=== PATIENT | female | born 1990 | race Caucasian/White ===

== ENCOUNTER 2020-09-08 10:31 | Emergency (ER) | payer BC ==
[2020-09-08] MEDS ORDERED: Ketorolac Tromethamine 30 MG/ML VIAL ONE (11:37)
[2020-09-08] MEDS ORDERED: Ondansetron PF 4 MG/2 ML Vial ONE (11:37)
--- NOTE | 2020-09-08 11:49 | RAD ---
XR Chest 1 View Portable History: Dyspnea Comparison: None. Findings: Patchy peripheral airspace opacities. No pneumothorax. No effusion. No acute osseous abnorm ality. Impression: Patchy airspace opacities can be seen with Covid-19 pneumonia.
--- NOTE | 2020-09-08 11:52 | ULT ---
US Gallbladder RUQ History: Right upper quadrant pain Comparison: None. Findings: Real-time grayscale and color evaluation right upper quadrant of the abdomen was performed. The aorta IVC and pancreas are not well seen due to decreased penetration. Diffuse increased hepatic echotexture. No mass. No intrahepatic or extrahepatic biliary dilatation. Right kidney measures 12.6 x 5.7 x 6.3 cm without mass, hydronephrosis or abnormal calcifications. Cholelithiasis without wall thickening. No pericholecystic edema. Portal vein is patent with antegrad e flow. Common bile duct is nondilated. Impression: 1. Cholelithiasis without cholecystitis. 2. Diffuse hepatic steatosis.
[2020-09-08] MEDS ORDERED: Ondansetron ODT 8 MG TAB ONE (12:15)
[2020-09-08 12:44] LABS: #Lymphocytes 1.1 thou/uL (1.20-3.40); #Monocytes 0.3 thou/uL (0.11-0.59); #Neutrophils 3.7 thou/uL (1.40-6.50); %Basophils 0.7 % (0.0-1.0); %Eosinophils 0.5 % (0.0-10.0); %Lymphocytes 21.2 % (21.0-51.0); %Monocytes 5.1 % (0.0-10.0); %Neutrophils 72.5 % (42.0-75.0); Hemoglobin 14.3 g/dL (12.0-16.0); Mean Corpuscular Hemoglobin 29.3 pg (27.0-31.0); Mean Corpuscular Volume 88.9 fL (78.0-98.0); Mean Platelet Volume 6.7 fL (7.4-10.4); Platelet Count 247 thou/uL (130-400); RBC Distribution Width 12.4 % (11.5-14.5); Red Blood Cell (RBC) Count 4.89 mill/uL (4.20-5.40); White Blood Cell (WBC) Count 5.1 thou/uL (4.8-10.8)
[2020-09-08 13:14] LABS: ALT (SGPT) 50 U/L (8-55); AST (SGOT) 50 U/L (5-34); Albumin 3.9 g/dL (3.5-5.0); Alkaline Phosphatase 74 U/L (40-110); Anion Gap 16 mmol/L (10-20); BUN (Urea Nitrogen) 8 mg/dL (7.0-18.7); Bilirubin, Total 0.2 mg/dL (0.2-1.2); Calc. Creatinine Clearance 0 mL/min (70-130); Calcium 8.8 mg/dL (7.8-10.44); Carbon Dioxide 21 mmol/L (22-29); Chloride 102 mmol/L (98-107); Estimated GFR-MDRD Greater than 90; Globulin 3.4 g/dL (2.4-3.5); Glucose 129 mg/dL (70-105); Lipase 10 U/L (8-78); Protein, Total 7.3 g/dL (6.0-8.3); Sodium 135 mmol/L (136-145)
[2020-09-08] MEDS ORDERED: Dexamethasone 10 MG/ML VIAL ONE (14:18)
== END 2020-09-08 14:45 | disposition home or self-care (01) ==
LOC: ERS 10:31
DX: U07.1 COVID-19 (principal); K80.70 Calculus of gallbladder and bile duct without cholecystitis without obstruction
CPT/HCPCS: 36415; 71045; 76705; 80053; 83690; 85025; 96372; 96374; 96375; J0500; J1100; J1885; J2405; Q0162

== ENCOUNTER 2020-09-11 23:58 | Inpatient (IN) | payer BC ==
[2020-09-12 00:43] LABS: #Lymphocytes 1.6 thou/uL (1.20-3.40); #Monocytes 0.3 thou/uL (0.11-0.59); #Neutrophils 5.8 thou/uL (1.40-6.50); %Basophils 0.2 % (0.0-1.0); %Eosinophils 0.2 % (0.0-10.0); %Lymphocytes 20.4 % (21.0-51.0); %Monocytes 4.1 % (0.0-10.0); Hemoglobin 14.1 g/dL (12.0-16.0); Mean Corpuscular HGB CONC 32.5 g/dL (32.0-36.0); Mean Corpuscular Hemoglobin 28.5 pg (27.0-31.0); Mean Corpuscular Volume 87.7 fL (78.0-98.0); Mean Platelet Volume 6.6 fL (7.4-10.4); Platelet Count 320 thou/uL (130-400); RBC Distribution Width 12.3 % (11.5-14.5); Red Blood Cell (RBC) Count 4.96 mill/uL (4.20-5.40); White Blood Cell (WBC) Count 7.7 thou/uL (4.8-10.8)
[2020-09-12] MEDS ORDERED: Acetaminophen 500 MG TAB ONE (01:04)
[2020-09-12 01:29] LABS: BHCG - Serum Negative (NEGATIVE); Pregs Control Background? CLEAR/WHITE (CLR/WHITE); Pregs Control Bar Appear? YES (CONTROL BAR)
[2020-09-12 01:46] LABS: ALT (SGPT) 54 U/L (8-55); AST (SGOT) 65 U/L (5-34); Albumin 4.1 g/dL (3.5-5.0); Alkaline Phosphatase 71 U/L (40-110); Anion Gap 18 mmol/L (10-20); BUN (Urea Nitrogen) 8 mg/dL (7.0-18.7); Bilirubin, Total 0.4 mg/dL (0.2-1.2); Calc. Creatinine Clearance 0 mL/min (70-130); Calcium 8.7 mg/dL (7.8-10.44); Carbon Dioxide 26 mmol/L (22-29); Chloride 98 mmol/L (98-107); Estimated GFR-MDRD Greater than 90; Globulin 4.4 g/dL (2.4-3.5); Glucose 107 mg/dL (70-105); Potassium 3.8 mmol/L (3.5-5.1); Protein, Total 8.5 g/dL (6.0-8.3); Sodium 138 mmol/L (136-145)
[2020-09-12] MEDS ORDERED: Dextrose 5% in Water 1,000 ML IV PRN (03:23)
[2020-09-12] MEDS ORDERED: Dextrose 50% Abboject 50 ML SYRINGE SLOW IVP PRN (03:23)
[2020-09-12] MEDS ORDERED: Azithromycin 500 MG in Sodium Chloride 0.9% 250 ML 250 ML IVPB SCH ×3 (03:30→08:00)
[2020-09-12] MEDS ORDERED: cefTRIAXone\\ROCEPHIN 1 GM in Sodium Chloride 0.9% 100 ML IVPB SCH (03:30)
[2020-09-12] MEDS ORDERED: Albuterol Sulfate 1.25 MG/3 ML NEB NEB PRN (03:53)
[2020-09-12] MEDS ORDERED: cefTRIAXone\\ROCEPHIN 2 GM in Sodium Chloride 0.9% 100 ML IVPB SCH ×2 (04:00→08:00)
--- NOTE | 2020-09-12 05:06 | HP ---
CHIEF COMPLAINT: Shortness of breath, cough, fever, and abdominal pain. HISTORY OF PRESENT ILLNESS: Ms. Quiroz is a 29-year-old female with past medical history of diabetes mellitus, type 2; morbid obesity; asthma, presented to the emergency room with cough, fever, and shortness of breath associated with abdominal pain. The patient was tested positive for COVID 10 days ago. Workup in the emergency room, patient was in distress, febrile, temperature 101.7, patient's oxygen saturation dropped to 80s with any minimal exertion/ambulation. The patient started on 2 L/minute nasal cannula. Imaging studies including CT showed infiltrates consistent with COVID. Abdominal imaging showed cholelithiasis, without obstruction or cholecystitis as per the ED physician. So, official report is not available at the time of this dictation. Lactic acid 1.6. The patient is being admitted to the hospital for further management. PAST MEDICAL HISTORY: 1. Diabetes mellitus, type 2. 2. Morbid obesity. 3. Childhood asthma. 4. Gout. 5. Irritable bowel syndrome. PAST SURGICAL HISTORY: No significant past surgical history. PAST PSYCHIATRIC HISTORY: Anxiety. FAMILY HISTORY: Reviewed and noncontributory. SOCIAL HISTORY: The patient drinks socially. No smoking history. ALLERGIES: SHE IS ALLERGIC TO SULFA AND PENICILLIN. HOME MEDICATIONS: Please see home medications reconciliation form for updated medications. PHYSICAL EXAMINATION: GENERAL: The patient is awake, alert, in moderate distress. VITAL SIGNS: Blood pressure 110/56, pulse is 80, respiratory rate is 22, temperature 101.7, oxygen saturation 94% on 2 L/minute nasal cannula. HEAD AND NECK: Normocephalic, atraumatic. Neck is supple. CHEST: Coarse bilateral breath sounds, respirations are labored. HEART: S1, S2. Regular. ABDOMEN: Obese, soft. Mild epigastric tenderness. Bowel sounds present. NEUROLOGIC: Awake, alert, oriented. No focal deficits. PSYCH: Unable to assess. EXTREMITIES: No clubbing or cyanosis. SKIN: No apparent rash. GENITOURINARY: No suprapubic tenderness. No flank tenderness. LABORATORY DATA: As mentioned above in history of present illness. IMAGING STUDIES: As mentioned above in history of present illness. ASSESSMENT: 1. Pneumonia secondary to COVID-19 virus infection. 2. COVID-19 virus infection. 3. Hypoxia. Patient's oxygen saturation dropped down to the 80s with minimal exertion. 4. Morbid obesity with BMI more than 40. 5. Diabetes mellitus, type 2. 6. Abdominal pain. 7. Cholelithiasis without evidence of obstruction or cholecystitis. PLAN: 1. Admit. 2. Oxygen to keep saturation more than 92%. 3. IV dexamethasone. 4. Empiric IV antibiotics. 5. Bronchodilators as needed. 6. Reconcile home medications. 7. DVT prophylaxis as appropriate. 8. Expected length of stay, 2 midnights or more. Job ID: [id number]
[2020-09-12] MEDS ORDERED: Ondansetron PF 4 MG/2 ML Vial ONE (05:27)
[2020-09-12 06:12] VITALS: BMI 51.5
--- NOTE | 2020-09-12 07:41 | CT ---
CT Chest WO Con History: Shortness of breath and cough. Covid pneumonia Comparison: None. Findings: Chest radiograph September 08, 2020 Impression: Findings and impression are concordant with the preliminary report.
--- NOTE | 2020-09-12 07:43 | CT ---
CT Abdomen Pelvis W Con History: Abdominal pain. Code with pneumonia. Nausea Comparison: None. Findings/impression: Concordant with the preliminary report. Hepatic steatosis. Normal appendix.
[2020-09-12] MEDS: Acetaminophen 325 MG TAB PO PRN ×3 (08:19→19:58)
[2020-09-12] MEDS ORDERED: Dexamethasone Sod Phosphate 6 MG in Sodium Chloride 0.9% 50 ML IVPB SCH (09:00)
[2020-09-12] MEDS ORDERED: Enoxaparin Sodium 40 MG/0.4 ML SYRINGE SC SCH (09:00)
[2020-09-12] MEDS: Famotidine/PF 20 mg/2ml Vial SLOW IVP SCH ×2 (09:08→19:55)
[2020-09-12] MEDS: Enoxaparin Sodium 40 MG/0.4 ML SYRINGE SC SCH ×2 (09:08→19:55)
[2020-09-12] MEDS: Guaifenesin DM 100-10/5 ML UDCUP PO PRN (11:46)
[2020-09-12] MEDS: Cepastat Lozenges 1 LOZ PO PRN (11:47)
--- NOTE | 2020-09-12 12:59 | PDOC.HOSPP ---
- Subjective Encounter Date: 09/12/20 Encounter Time: 11:45 Subjective: has cough, sometimes gets hemoptysis has been sick for atleast 9 days now per patient normally ambulates well has b/l lower chest/abd area pain from coughing is comfortable on nasal canula - Objective Vital Signs & Weight: Vital Signs (12 hours) Temp Pulse Resp BP Pulse Ox 09/12/20 11:10 98.9 F 94 20 115/46 L 94 L 09/12/20 08:20 100.0 F H 107 H 23 H 126/99 H 94 L 09/12/20 05:38 99.1 F 98 22 H 129/59 L 94 L Weight Weight 338 lb 12.8 oz Result Diagrams: 09/12/20 00:30 09/12/20 00:30 Additional Labs: Accuchecks 09/12/20 09/12/20 11:15 06:20 POC Glucose 163 H 147 H Hospitalist ROS - Medication Medications: Active Medications Generic Name Dose Route Start Last Admin Trade Name Freq PRN Reason Stop Dose Admin Acetaminophen 650 mg 09/12/20 03:18 09/12/20 08:19 Acetaminophen 325 Mg Tab PO 650 mg Q4H PRN Administration Headache/Fever/Mild Pain (1-3) Enoxaparin Sodium 40 mg 09/12/20 09:00 09/12/20 09:08 Enoxaparin Sodium 40 Mg/0.4 Ml Syringe SC 40 mg 0900,2100 SHARYN Administration Famotidine 20 mg 09/12/20 09:00 09/12/20 09:08 Famotidine/Pf 20 Mg/2ml Vial SLOW IVP 20 mg Q12HR SHARYN Administration Guaifenesin/Dextromethorphan 15 ml 09/12/20 11:01 09/12/20 11:46 Guaifenesin Dm 100-10/5 Ml Udcup PO 15 ml Q4H PRN Administration Cough Azithromycin 500 mg/ Sodium 250 mls @ 250 mls/hr 09/12/20 08:00 09/12/20 09:08 Chloride IVPB 250 mls Q24HR SHARYN Administration Ceftriaxone Sodium 2 gm/ 100 mls @ 200 mls/hr 09/12/20 08:00 09/12/20 11:46 Sodium Chloride IVPB 100 mls Q24HR SHARYN Administration Throat Lozenges 1 mitchell 09/12/20 11:01 09/12/20 11:47 Cepastat Lozenges 1 Mitchell PO 1 mitchell Q2H PRN Administration Sore Throat - Exam General Appearance: awake alert Eye: PERRL, anicteric sclera ENT: no oropharyngeal lesions, moist mucosa Neck: supple, no JVD Heart: RRR, no murmur Respiratory: no wheezes, rales, rhonchi Gastrointestinal: soft, non-tender, non-distended, normal bowel sounds Extremities: no cyanosis, no edema Neurological: cranial nerve grossly intact, no focal deficits Psychiatric: normal affect, A&O x 3 Hosp A/P (1) Pneumonia due to COVID-19 virus Code(s): U07.1 - COVID-19; J12.89 - OTHER VIRAL PNEUMONIA Status: Acute (2) Acute respiratory failure with hypoxia Code(s): J96.01 - ACUTE RESPIRATORY FAILURE WITH HYPOXIA Status: Acute (3) Morbid obesity with BMI of 50.0-59.9, adult Code(s): E66.01 - MORBID (SEVERE) OBESITY DUE TO EXCESS CALORIES; Z68.43 - BODY MASS INDEX [BMI] 50.0-59.9, ADULT Status: Chronic (4) Cholelithiasis Code(s): K80.20 - CALCULUS OF GALLBLADDER W/O CHOLECYSTITIS W/O OBSTRUCTION Status: Chronic Qualifiers: Cholelithiasis location: gallbladder Cholecystitis presence: without cholecystitis Biliary obstruction: without biliary obstruction Qualified Code(s): K80.20 - Calculus of gallbladder without cholecystitis without obstruction - Plan is on dexamethasone, nasal canula, is day 9 or 10 of her illness, not sure if she is a candidate for remdesivir morbid obesity with bmi of 51 to ambulate as tolerated, encourage heart healthy diet nebs, mucinex, tessalon, zithromax and ceftriaxone (may dc antibiotics if ok with or continue ceftriaxone for possible sec pathogens) lovenox 40mg sc q12h hemostable for now, has potential to get worse
[2020-09-12] MEDS: Benzonatate 100 MG CAP PO SCH ×2 (14:41→19:55)
[2020-09-12] MEDS: Dicyclomine 20 MG TAB PO PRN ×2 (14:41→18:59)
--- NOTE | 2020-09-12 14:48 | CON ---
DATE OF CONSULTATION: 09/12/2020 REASON FOR CONSULTATION: COVID pneumonia. HISTORY OF PRESENT ILLNESS: A 29-year-old with history of obesity, polycystic ovarian syndrome, insulin resistance, gout, irritable bowel syndrome, and type 2 diabetes, who developed symptoms of COVID about 10 days before and has been admitted with worsening respiratory symptoms and diffuse ground-glass opacities on CT scan. She is currently receiving azithromycin, Rocephin, and Decadron. She is having abdominal cramps in the mid abdominal area and worsening dyspnea. No headaches. Anosmia is noted. No back pain. No genitourinary symptoms. No joint symptoms or skin disorder. No neurological symptoms. PAST MEDICAL HISTORY: Obesity, PCOS, type 2 diabetes, and irritable bowel syndrome. ALLERGIES: PENICILLINS AND SULFA DRUGS WITH RASHES. 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 CURRENT MEDICATIONS: 1. Rocephin. 2. Azithromycin. 3. Inhalers. 4. Enoxaparin. 5. Insulin. 6. Decadron, usual dose. PHYSICAL EXAMINATION: VITAL SIGNS: T-max 100, saturating 94 on 1.5 nasal cannula O2, breathing at 20 times a minute, and BP 115/46. GENERAL: Appears in some distress. SKIN: Normal. There is no lymphadenopathy. Peripheral IV access. Voiding in the toilet. HEENT: Ocular movements conjugate. Oral cavity normal. LUNGS: With somewhat coarse breath sounds. I could not identify any crackles or wheezing. HEART: S1 and S2. Regular rate. ABDOMEN: Soft, not distended or tender, maybe mild tenderness periumbilical area. No bladder distention. EXTREMITIES: No joint inflammatory activity. No edema. Moves extremities equally. LABORATORY DATA: CBC is normal. Chemistry with an AST 65. Creatinine is normal. test negative. CT of chest with diffuse ground-glass opacities. ASSESSMENT AND PLAN: COVID-19, ten days illness course, moderate to severe. Obesity and diabetes. The risk factors were worse outcome. Start remdesivir and continue Decadron and Lovenox. Discontinue azithromycin and Rocephin. Monitor markers daily. [place] for cramps. Job ID: [id number]
[2020-09-12] MEDS ORDERED: REMDESIVIR (EUA) 200 MG in Sodium Chloride 0.9% 250 ML 210 ML IV SCH (15:00)
[2020-09-12] MEDS: Ondansetron PF 4 MG/2 ML Vial IVP PRN (18:59)
[2020-09-12] MEDS: guaiFENesin ER 600 MG TAB PO SCH (19:55)
[2020-09-12] MEDS ORDERED: Promethazine HCl 12.5 MG in Sodium Chloride 0.9% 50 ML IVPB SCH (23:45)
[2020-09-12] MEDS ORDERED: Dexamethasone 4 mg/ml Vial SLOW IVP SCH (23:45)
[2020-09-13] MEDS: Ibuprofen 200 MG TAB PO PRN ×3 (00:34→21:10)
[2020-09-13] MEDS: HumaLOG 300 UNITS/3 ML VIAL SC PRN (06:10)
[2020-09-13 06:47] LABS: ALT (SGPT) 42 U/L (8-55); AST (SGOT) 41 U/L (5-34); Albumin 3.6 g/dL (3.5-5.0); Alkaline Phosphatase 65 U/L (40-110); Anion Gap 17 mmol/L (10-20); BUN (Urea Nitrogen) 8 mg/dL (7.0-18.7); Bilirubin, Direct 0.2 mg/dL (0.1-0.3); Bilirubin, Total 0.4 mg/dL (0.2-1.2); CRP (Inflammatory) 27.99 mg/dL (= or < 0.5); Calc. Creatinine Clearance 277 mL/min (70-130); Calcium 8.4 mg/dL (7.8-10.44); Carbon Dioxide 26 mmol/L (22-29); Chloride 99 mmol/L (98-107); Estimated GFR-MDRD Greater than 90; Glucose 170 mg/dL (70-105); Potassium 3.8 mmol/L (3.5-5.1); Protein, Total 7.5 g/dL (6.0-8.3); Sodium 138 mmol/L (136-145)
[2020-09-13] MEDS: Benzonatate 100 MG CAP PO SCH ×3 (07:51→19:44)
[2020-09-13] MEDS: guaiFENesin ER 600 MG TAB PO SCH ×2 (07:51→19:45)
[2020-09-13] MEDS: Enoxaparin Sodium 40 MG/0.4 ML SYRINGE SC SCH ×2 (07:51→19:44)
[2020-09-13] MEDS: Famotidine 20 MG TAB PO SCH ×2 (07:51→19:45)
[2020-09-13] MEDS: Dicyclomine 20 MG TAB PO PRN ×2 (12:16→19:45)
[2020-09-13] MEDS: Guaifenesin DM 100-10/5 ML UDCUP PO PRN ×2 (12:28→22:46)
--- NOTE | 2020-09-13 13:03 | PDOC.HOSPP ---
- Subjective Encounter Date: 09/13/20 Encounter Time: 09:15 Subjective: is sitting on bed, no sob feels better - Objective Vital Signs & Weight: Vital Signs (12 hours) Temp Pulse Resp BP Pulse Ox 09/13/20 08:10 97.8 F 82 24 H 100/65 93 L 09/13/20 08:00 93 L 09/13/20 06:00 98.1 F 85 24 H 116/68 92 L 09/13/20 01:30 99.4 F Weight Weight 338 lb 12.8 oz I&O: 09/12/20 09/13/20 09/14/20 06:59 06:59 06:59 Intake Total 315 Balance 315 Result Diagrams: 09/12/20 00:30 09/13/20 05:59 Additional Labs: Accuchecks 09/13/20 09/12/20 12:21 16:40 POC Glucose 138 H 153 H Hospitalist ROS - Medication Medications: Active Medications Generic Name Dose Route Start Last Admin Trade Name Freq PRN Reason Stop Dose Admin Acetaminophen 650 mg 09/12/20 03:18 09/12/20 19:58 Acetaminophen 325 Mg Tab PO 650 mg Q4H PRN Administration Headache/Fever/Mild Pain (1-3) Benzonatate 100 mg 09/12/20 15:00 09/13/20 07:51 Benzonatate 100 Mg Cap PO 100 mg TID SHARYN Administration Dicyclomine HCl 20 mg 09/12/20 13:38 09/13/20 12:16 Dicyclomine 20 Mg Tab PO 20 mg QIDPRN PRN Administration abdominal pain Enoxaparin Sodium 40 mg 09/12/20 09:00 09/13/20 07:51 Enoxaparin Sodium 40 Mg/0.4 Ml Syringe SC 40 mg 0900,2100 SHARYN Administration Famotidine 20 mg 09/13/20 09:00 09/13/20 07:51 Famotidine 20 Mg Tab PO 20 mg BID SHARYN Administration Guaifenesin 600 mg 09/12/20 21:00 09/13/20 07:51 Guaifenesin Er 600 Mg Tab PO 600 mg Q12HR SHARYN Administration Guaifenesin/Dextromethorphan 15 ml 09/12/20 11:01 09/13/20 12:28 Guaifenesin Dm 100-10/5 Ml Udcup PO 15 ml Q4H PRN Administration Cough Ibuprofen 400 mg 09/12/20 23:50 09/13/20 00:34 Ibuprofen 200 Mg Tab PO 400 mg Q6H PRN Administration Fever/Mild Pain 1-3 Insulin Human Lispro 0 units 09/12/20 03:23 09/13/20 06:10 Humalog 300 Units/3 Ml Vial SC 2 units .MILD SLIDING SCALE PRN Administration Mild Correctional Scale Ondansetron HCl 4 mg 09/12/20 18:39 09/12/20 18:59 Ondansetron Pf 4 Mg/2 Ml Vial IVP 4 mg Q6H PRN Administration Nausea/Vomiting Throat Lozenges 1 mitchell 09/12/20 11:01 09/12/20 11:47 Cepastat Lozenges 1 Mitchell PO 1 mitchell Q2H PRN Administration Sore Throat - Exam General Appearance: awake alert Eye: PERRL, anicteric sclera ENT: no oropharyngeal lesions, moist mucosa Neck: supple, no JVD Heart: RRR, no murmur Respiratory: no wheezes, no rales, rhonchi Gastrointestinal: soft, non-tender, non-distended, normal bowel sounds Extremities: no cyanosis, no edema Neurological: cranial nerve grossly intact, no focal deficits Psychiatric: normal affect, A&O x 3 Hosp A/P (1) Pneumonia due to COVID-19 virus Code(s): U07.1 - COVID-19; J12.89 - OTHER VIRAL PNEUMONIA Status: Acute (2) Acute respiratory failure with hypoxia Code(s): J96.01 - ACUTE RESPIRATORY FAILURE WITH HYPOXIA Status: Acute (3) Morbid obesity with BMI of 50.0-59.9, adult Code(s): E66.01 - MORBID (SEVERE) OBESITY DUE TO EXCESS CALORIES; Z68.43 - BODY MASS INDEX [BMI] 50.0-59.9, ADULT Status: Chronic (4) Cholelithiasis Code(s): K80.20 - CALCULUS OF GALLBLADDER W/O CHOLECYSTITIS W/O OBSTRUCTION Status: Chronic Qualifiers: Cholelithiasis location: gallbladder Cholecystitis presence: without cholecystitis Biliary obstruction: without biliary obstruction Qualified Code(s): K80.20 - Calculus of gallbladder without cholecystitis without obstruction - Plan is on dexamethasone, nasal canula, remdesivir, was day 9 or 10 of her illness on admission. morbid obesity with bmi of 51 to ambulate as tolerated, encourage heart healthy diet nebs, mucinex, tessalon, bentyl lovenox 40mg sc q12h, solid diet from today. hemostable for now, has potential to get worse
[2020-09-13] MEDS: REMDESIVIR (EUA) 100 MG in Sodium Chloride 0.9% 250 ML 230 ML IV SCH (14:51)
[2020-09-13] MEDS: Dexamethasone 4 mg/ml Vial SLOW IVP SCH (19:44)
[2020-09-13] MEDS: Acetaminophen 325 MG TAB PO PRN (22:36)
[2020-09-14 06:22] LABS: ALT (SGPT) 48 U/L (8-55); AST (SGOT) 37 U/L (5-34); Albumin 3.7 g/dL (3.5-5.0); Alkaline Phosphatase 71 U/L (40-110); Anion Gap 15 mmol/L (10-20); BUN (Urea Nitrogen) 12 mg/dL (7.0-18.7); Bilirubin, Direct 0.2 mg/dL (0.1-0.3); Bilirubin, Total 0.3 mg/dL (0.2-1.2); CRP (Inflammatory) 18.12 mg/dL (= or < 0.5); Calc. Creatinine Clearance 285 mL/min (70-130); Calcium 8.8 mg/dL (7.8-10.44); Carbon Dioxide 28 mmol/L (22-29); Chloride 103 mmol/L (98-107); Estimated GFR-MDRD Greater than 90; Glucose 160 mg/dL (70-105); Potassium 4.2 mmol/L (3.5-5.1); Protein, Total 7.8 g/dL (6.0-8.3); Sodium 142 mmol/L (136-145)
[2020-09-14] MEDS: Guaifenesin DM 100-10/5 ML UDCUP PO PRN (06:39)
[2020-09-14] MEDS: Famotidine 20 MG TAB PO SCH ×2 (08:01→20:19)
[2020-09-14] MEDS: Enoxaparin Sodium 40 MG/0.4 ML SYRINGE SC SCH ×2 (08:02→20:19)
[2020-09-14] MEDS: guaiFENesin ER 600 MG TAB PO SCH ×2 (08:02→20:20)
[2020-09-14] MEDS: Benzonatate 100 MG CAP PO SCH ×3 (08:02→20:17)
--- NOTE | 2020-09-14 13:13 | PDOC.HOSPP ---
- Subjective Encounter Date: 09/14/20 Encounter Time: 09:00 Subjective: got sob with coughing spells this am and spo2 dropping to low 80's was placed on high flow she doesn't like it as she cant walk much with short cord - Objective Vital Signs & Weight: Vital Signs (12 hours) Temp Pulse Resp BP Pulse Ox 09/14/20 05:30 98.4 F 78 20 111/76 94 L Weight Weight 338 lb 12.8 oz I&O: 09/13/20 09/14/20 09/15/20 06:59 06:59 06:59 Intake Total 315 1460 Balance 315 1460 Result Diagrams: 09/12/20 00:30 09/14/20 05:16 Additional Labs: Accuchecks 09/14/20 09/13/20 09/13/20 05:33 19:53 15:22 POC Glucose 149 H 136 H 117 H 09/13/20 09/12/20 04:14 21:05 POC Glucose 167 H 131 H Hospitalist ROS - Medication Medications: Active Medications Generic Name Dose Route Start Last Admin Trade Name Freq PRN Reason Stop Dose Admin Acetaminophen 650 mg 09/12/20 03:18 09/13/20 22:36 Acetaminophen 325 Mg Tab PO 650 mg Q4H PRN Administration Headache/Fever/Mild Pain (1-3) Benzonatate 100 mg 09/12/20 15:00 09/14/20 08:02 Benzonatate 100 Mg Cap PO 100 mg TID SHARYN Administration Dexamethasone 6 mg 09/13/20 21:00 09/13/20 19:44 Dexamethasone 4 Mg/Ml Vial SLOW IVP 6 mg 2099 SHARYN Administration Dicyclomine HCl 20 mg 09/12/20 13:38 09/13/20 19:45 Dicyclomine 20 Mg Tab PO 20 mg QIDPRN PRN Administration abdominal pain Enoxaparin Sodium 40 mg 09/12/20 09:00 09/14/20 08:02 Enoxaparin Sodium 40 Mg/0.4 Ml Syringe SC 40 mg 0900,2100 SHARYN Administration Famotidine 20 mg 09/13/20 09:00 09/14/20 08:01 Famotidine 20 Mg Tab PO 20 mg BID SHARYN Administration Guaifenesin 600 mg 09/12/20 21:00 09/14/20 08:02 Guaifenesin Er 600 Mg Tab PO 600 mg Q12HR SHARYN Administration Guaifenesin/Dextromethorphan 15 ml 09/12/20 11:01 09/14/20 06:39 Guaifenesin Dm 100-10/5 Ml Udcup PO 15 ml Q4H PRN Administration Cough Remdesivir 100 mg/ Sodium 250 mls @ 250 mls/hr 09/13/20 15:00 09/13/20 14:51 Chloride IV 09/16/20 15:59 250 mls 1500 SHARYN Administration Ibuprofen 400 mg 09/12/20 23:50 09/13/20 21:10 Ibuprofen 200 Mg Tab PO 400 mg Q6H PRN Administration Fever/Mild Pain 1-3 Insulin Human Lispro 0 units 09/12/20 03:23 09/13/20 06:10 Humalog 300 Units/3 Ml Vial SC 2 units .MILD SLIDING SCALE PRN Administration Mild Correctional Scale Ondansetron HCl 4 mg 09/12/20 18:39 09/12/20 18:59 Ondansetron Pf 4 Mg/2 Ml Vial IVP 4 mg Q6H PRN Administration Nausea/Vomiting Throat Lozenges 1 mitchell 09/12/20 11:01 09/12/20 11:47 Cepastat Lozenges 1 Mitchell PO 1 mitchell Q2H PRN Administration Sore Throat - Exam General Appearance: awake alert Eye: PERRL, anicteric sclera ENT: no oropharyngeal lesions, moist mucosa Neck: supple, no JVD Heart: RRR, no murmur Respiratory: no wheezes, no rales, rhonchi Gastrointestinal: soft, non-tender, non-distended, normal bowel sounds Extremities: no cyanosis, no edema Neurological: cranial nerve grossly intact, no focal deficits Psychiatric: normal affect, A&O x 3 Hosp A/P (1) Pneumonia due to COVID-19 virus Code(s): U07.1 - COVID-19; J12.89 - OTHER VIRAL PNEUMONIA Status: Acute (2) Acute respiratory failure with hypoxia Code(s): J96.01 - ACUTE RESPIRATORY FAILURE WITH HYPOXIA Status: Acute (3) Morbid obesity with BMI of 50.0-59.9, adult Code(s): E66.01 - MORBID (SEVERE) OBESITY DUE TO EXCESS CALORIES; Z68.43 - BODY MASS INDEX [BMI] 50.0-59.9, ADULT Status: Chronic (4) Cholelithiasis Code(s): K80.20 - CALCULUS OF GALLBLADDER W/O CHOLECYSTITIS W/O OBSTRUCTION Status: Chronic Qualifiers: Cholelithiasis location: gallbladder Cholecystitis presence: without cholecystitis Biliary obstruction: without biliary obstruction Qualified Code(s): K80.20 - Calculus of gallbladder without cholecystitis without obstruction - Plan is on dexamethasone, high flow from today, remdesivir, was day 9 or 10 of her illness on admission. morbid obesity with bmi of 51 to exercise on bed as tolerated, encourage heart healthy diet nebs, mucinex, tessalon, bentyl lovenox 40mg sc q12h. hemostable for now, has potential to get worse
[2020-09-14] MEDS: Dicyclomine 20 MG TAB PO PRN ×2 (13:26→20:20)
--- NOTE | 2020-09-14 15:19 | RAD ---
CHEST 1 VIEW: Date: 09/14/2020 HISTORY: Follow-up COVID pneumonia, now needing higher level oxygen. COMPARISON: 09/08/2020 chest x-ray and CT dated 09/12/2020. FINDINGS: Worsening bilateral alveolar and ground-glass opacity patchy pneumonic infiltrative changes noted thr oughout both lungs with overall right and left lung volume loss. Heart size is within normal limits. No new confluent process. The abnormal opacities appear to be somewhat more prominent than on the CT of 09/12/2020. IMPRESSION: Evidence for worsening bilateral patchy COVID pneumonia. POS: RRE
[2020-09-14] MEDS: REMDESIVIR (EUA) 100 MG in Sodium Chloride 0.9% 250 ML 230 ML IV SCH (16:19)
[2020-09-14] MEDS: Ibuprofen 200 MG TAB PO PRN ×2 (18:11→23:32)
--- NOTE | 2020-09-14 18:43 | PRG ---
DATE OF SERVICE: 09/14/2020 SUBJECTIVE: The patient had respiratory difficulty this morning with severe hypoxemia, required to be placed on high-flow. No abdominal pain or diarrhea. No chest pain. OBJECTIVE: VITAL SIGNS: She is saturating 92% with a flow of 40 on high-flow nasal cannula O2, temperature normal, respiratory rate 18. GENERAL: Does not appear in distress. LUNGS: Symmetric air entry. HEART: S1 and S2. Regular rate. ABDOMEN: Soft, not distended. EXTREMITIES: Moves extremities equally. LABORATORY DATA: Ferritin 732, which is higher than yesterday. CRP is down to 18 from 27. She is currently on remdesivir and Decadron. ASSESSMENT AND DISCUSSION: COVID-19 at the 11th day of illness on all the available therapy. Job ID: [id number] [facility]
[2020-09-14] MEDS: Dexamethasone 4 mg/ml Vial SLOW IVP SCH (20:17)
[2020-09-14] MEDS: Ondansetron PF 4 MG/2 ML Vial IVP PRN (20:20)
[2020-09-15] MEDS: Cepastat Lozenges 1 LOZ PO PRN (04:44)
[2020-09-15] MEDS: guaiFENesin ER 600 MG TAB PO SCH ×2 (08:00→20:28)
[2020-09-15] MEDS: Benzonatate 100 MG CAP PO SCH ×3 (08:00→20:28)
[2020-09-15] MEDS: Enoxaparin Sodium 40 MG/0.4 ML SYRINGE SC SCH ×2 (08:00→20:29)
[2020-09-15] MEDS: Famotidine 20 MG TAB PO SCH ×2 (08:00→20:29)
[2020-09-15 08:03] LABS: ALT (SGPT) 44 U/L (8-55); AST (SGOT) 30 U/L (5-34); Albumin 3.3 g/dL (3.5-5.0); Alkaline Phosphatase 56 U/L (40-110); Anion Gap 17 mmol/L (10-20); BUN (Urea Nitrogen) 14 mg/dL (7.0-18.7); Bilirubin, Direct 0.1 mg/dL (0.1-0.3); Bilirubin, Total 0.2 mg/dL (0.2-1.2); CRP (Inflammatory) 6.07 mg/dL (= or < 0.5); Calc. Creatinine Clearance 298 mL/min (70-130); Calcium 8.5 mg/dL (7.8-10.44); Carbon Dioxide 22 mmol/L (22-29); Chloride 105 mmol/L (98-107); Estimated GFR-MDRD Greater than 90; Glucose 159 mg/dL (70-105); Potassium 4.5 mmol/L (3.5-5.1); Protein, Total 6.7 g/dL (6.0-8.3); Sodium 139 mmol/L (136-145)
[2020-09-15] MEDS: Dicyclomine 20 MG TAB PO PRN ×2 (08:03→18:25)
--- NOTE | 2020-09-15 13:54 | PDOC.HOSPP ---
- Subjective Encounter Date: 09/15/20 Encounter Time: 08:15 Subjective: is on nasal canula, ambulating to restroom and back, spo2 is >90% no chest pain or palp - Objective Vital Signs & Weight: Vital Signs (12 hours) Temp Pulse Resp BP Pulse Ox 09/15/20 09:00 98.8 F 74 17 119/73 96 09/15/20 08:00 98 09/15/20 04:45 97 Weight Weight 338 lb 12.8 oz I&O: 09/14/20 09/15/20 09/16/20 06:59 06:59 06:59 Intake Total 1462079 Balance 1462079 Result Diagrams: 09/12/20 00:30 09/15/20 07:02 Additional Labs: Accuchecks 09/15/20 09/14/20 09/14/20 04:49 20:34 16:24 POC Glucose 150 H 103 H 112 H Hospitalist ROS - Medication Medications: Active Medications Generic Name Dose Route Start Last Admin Trade Name Freq PRN Reason Stop Dose Admin Acetaminophen 650 mg 09/12/20 03:18 09/13/20 22:36 Acetaminophen 325 Mg Tab PO 650 mg Q4H PRN Administration Headache/Fever/Mild Pain (1-3) Benzonatate 100 mg 09/12/20 15:00 09/15/20 08:00 Benzonatate 100 Mg Cap PO 100 mg TID SHARYN Administration Dicyclomine HCl 20 mg 09/12/20 13:38 09/15/20 08:03 Dicyclomine 20 Mg Tab PO 20 mg QIDPRN PRN Administration abdominal pain Enoxaparin Sodium 40 mg 09/12/20 09:00 09/15/20 08:00 Enoxaparin Sodium 40 Mg/0.4 Ml Syringe SC 40 mg 0900,2100 SHARYN Administration Famotidine 20 mg 09/13/20 09:00 09/15/20 08:00 Famotidine 20 Mg Tab PO 20 mg BID SHARYN Administration Guaifenesin 600 mg 09/12/20 21:00 09/15/20 08:00 Guaifenesin Er 600 Mg Tab PO 600 mg Q12HR SHARYN Administration Guaifenesin/Dextromethorphan 15 ml 09/12/20 11:01 09/14/20 06:39 Guaifenesin Dm 100-10/5 Ml Udcup PO 15 ml Q4H PRN Administration Cough Remdesivir 100 mg/ Sodium 250 mls @ 250 mls/hr 09/13/20 15:00 09/14/20 16:19 Chloride IV 09/16/20 15:59 250 mls 1500 SHARYN Administration Ibuprofen 400 mg 09/12/20 23:50 09/14/20 23:32 Ibuprofen 200 Mg Tab PO 400 mg Q6H PRN Administration Fever/Mild Pain 1-3 Insulin Human Lispro 0 units 09/12/20 03:23 09/13/20 06:10 Humalog 300 Units/3 Ml Vial SC 2 units .MILD SLIDING SCALE PRN Administration Mild Correctional Scale Ondansetron HCl 4 mg 09/12/20 18:39 09/14/20 20:20 Ondansetron Pf 4 Mg/2 Ml Vial IVP 4 mg Q6H PRN Administration Nausea/Vomiting Throat Lozenges 1 mitchell 09/12/20 11:01 09/15/20 04:44 Cepastat Lozenges 1 Mitchell PO 1 mitchell Q2H PRN Administration Sore Throat - Exam General Appearance: awake alert Eye: PERRL, anicteric sclera ENT: no oropharyngeal lesions, moist mucosa Neck: supple, no JVD Heart: RRR, no murmur Respiratory: no wheezes, rales, rhonchi Gastrointestinal: soft, non-tender, non-distended, normal bowel sounds Extremities: no cyanosis, no edema Neurological: cranial nerve grossly intact, no focal deficits Psychiatric: A&O x 3 Hosp A/P (1) Pneumonia due to COVID-19 virus Code(s): U07.1 - COVID-19; J12.89 - OTHER VIRAL PNEUMONIA Status: Acute (2) Acute respiratory failure with hypoxia Code(s): J96.01 - ACUTE RESPIRATORY FAILURE WITH HYPOXIA Status: Acute (3) Morbid obesity with BMI of 50.0-59.9, adult Code(s): E66.01 - MORBID (SEVERE) OBESITY DUE TO EXCESS CALORIES; Z68.43 - BODY MASS INDEX [BMI] 50.0-59.9, ADULT Status: Chronic (4) Cholelithiasis Code(s): K80.20 - CALCULUS OF GALLBLADDER W/O CHOLECYSTITIS W/O OBSTRUCTION Status: Chronic Qualifiers: Cholelithiasis location: gallbladder Cholecystitis presence: without cholecystitis Biliary obstruction: without biliary obstruction Qualified Code(s): K80.20 - Calculus of gallbladder without cholecystitis without obstruction - Plan is on dexamethasone, O2 by nasal canula, remdesivir, cefepime. Was day 9 or 10 of her illness on admission. morbid obesity with bmi of 51 to exercise on bed as tolerated, encourage heart healthy diet nebs, mucinex, tessalon, bentyl lovenox 40mg sc q12h. hemostable for now, has potential to get worse with lots of infiltrates on recent cxr appreciate 's help discussed code status with patient at bedside, she wants everything done, I have given updates to today over phone
--- NOTE | 2020-09-15 13:59 | CON ---
DATE OF CONSULTATION: 09/15/2020 HISTORY OF PRESENT ILLNESS: Shannen Quiroz is a 29-year-old female who came to the hospital on 09/12. Sats were 90% on room air, respiratory rate was 24, pulse 106, temperature was 101.7, blood pressure was 164/96. She has diabetes, morbid obesity, and asthma; developed Coronavirus infection 10 days ago, became febrile, more short of breath, came to the hospital. Infectious Disease was consulted. On admission, she was began on remdesivir. Today, three days later on, Pulmonary is being consulted because of worsening pulmonary infiltrates. PAST MEDICAL HISTORY: Diabetes, gout. MEDICATIONS: Chronic medications from home include: 1. Metformin 500. 2. . 3. Omeprazole 40. 4. Celexa 20. 5. Zyrtec. 6. Elavil 100. 7. . ALLERGIES: PENICILLIN AND SULFA ALLERGIES. SOCIAL HISTORY: No alcohol or tobacco abuse. REVIEW OF SYSTEMS: Otherwise, unremarkable. PHYSICAL EXAMINATION: GENERAL: Morbidly obese female. VITAL SIGNS: Temperature , respiratory rate 17, sats are 96% on 3 L, blood pressure 190/73. CHEST: No wheezing, no crackles. CARDIAC: Normal S1, S2. No gallops. DIAGNOSTIC STUDIES: D-dimer is normal. IMPRESSION: Respiratory failure. X-ray shows bilateral bronchopneumonia pneumonia. PLAN: Increase Decadron twice a day. Continue Maxipime, 1 bag of plasma. Primary Critical Care will follow. Consultation note, 70 minutes, 50% direct patient care. Job ID: [id number]
[2020-09-15] MEDS: REMDESIVIR (EUA) 100 MG in Sodium Chloride 0.9% 250 ML 230 ML IV SCH (14:44)
[2020-09-15] MEDS: Ibuprofen 200 MG TAB PO PRN ×2 (14:45→20:28)
--- NOTE | 2020-09-15 15:02 | PRG ---
DATE OF SERVICE: 09/15/2020 SUBJECTIVE: The patient with some dyspnea on effort, but she is able to ambulate with O2 sats above 90% as long as she has oxygen supplementation. No abdominal pain or diarrhea. Able to eat. OBJECTIVE: VITAL SIGNS: She is afebrile, saturating 96% to 98% with 3 L nasal cannula, which is an improvement since she had been on high-flow nasal cannula before. LUNGS: With a few crackles in the right base. HEART: S1 and S2, regular rate. ABDOMEN: Soft, not distended. EXTREMITIES: Moves all extremities. LABORATORY DATA: D-dimer is down to 0.53 and ferritin is down to 384. CRP is down to 6. She is currently on cefepime, Decadron, and remdesivir. She had a chest x-ray, which showed patchy pneumonia. ASSESSMENT AND DISCUSSION: COVID-19. This is the 12th day of illness on Decadron and remdesivir with early evidence of improvement. The patient probably does not need antibacterial coverage at this point in time. Hopefully, she will continue to improve, but we can never tell with this infection. Job ID: [id number]
[2020-09-15] MEDS: Dexamethasone 4 mg/ml Vial SLOW IVP SCH (20:28)
[2020-09-15] MEDS: Mometasone 200 MCG/Formoterol 5 MCG 120 PUFF INHALER INH SCH (20:29)
[2020-09-15] MEDS: Cefepime 1 GM in Sodium Chloride 0.9% 100 ML IVPB SCH (20:29)
[2020-09-16 08:30] LABS: ALT (SGPT) 45 U/L (8-55); AST (SGOT) 30 U/L (5-34); Albumin 3.3 g/dL (3.5-5.0); Alkaline Phosphatase 55 U/L (40-110); Anion Gap 13 mmol/L (10-20); BUN (Urea Nitrogen) 11 mg/dL (7.0-18.7); Bilirubin, Direct 0.2 mg/dL (0.1-0.3); Bilirubin, Total 0.3 mg/dL (0.2-1.2); Calc. Creatinine Clearance 307 mL/min (70-130); Calcium 8.4 mg/dL (7.8-10.44); Carbon Dioxide 27 mmol/L (22-29); Chloride 102 mmol/L (98-107); Estimated GFR-MDRD Greater than 90; Glucose 131 mg/dL (70-105); Potassium 4.3 mmol/L (3.5-5.1); Protein, Total 6.6 g/dL (6.0-8.3); Sodium 138 mmol/L (136-145)
[2020-09-16] MEDS ORDERED: Senokot S 8.6-50 MG TAB PO PRN (08:31)
[2020-09-16] MEDS ORDERED: Loratadine 10 MG TAB PO PRN (08:31)
[2020-09-16] MEDS ORDERED: Bisacodyl 10 MG SUPP PR PRN (08:31)
[2020-09-16] MEDS ORDERED: Sodium Chloride 0.65% Nasal 44 ML BOT EA NARE PRN (08:31)
[2020-09-16] MEDS ORDERED: Loperamide HCl 2 MG CAP PO PRN (08:31)
[2020-09-16] MEDS ORDERED: HYDROcodone/Acetaminophen 5/325 mg Tablet PO PRN (08:31)
[2020-09-16] MEDS ORDERED: Zolpidem Tartrate 5 MG TAB PO PRN (08:31)
[2020-09-16] MEDS ORDERED: hydrALAZINE 20 MG/ML VIAL SLOW IVP PRN (08:31)
[2020-09-16] MEDS ORDERED: Diabetic Tussin 200 MG/10 ML UDCUP PO PRN (08:31)
[2020-09-16] MEDS: Famotidine 20 MG TAB PO SCH ×2 (08:54→20:07)
[2020-09-16] MEDS: Dexamethasone 4 mg/ml Vial SLOW IVP SCH ×2 (08:55→20:08)
[2020-09-16] MEDS: guaiFENesin ER 600 MG TAB PO SCH ×2 (08:55→20:07)
[2020-09-16] MEDS: Enoxaparin Sodium 40 MG/0.4 ML SYRINGE SC SCH ×2 (08:55→20:07)
[2020-09-16] MEDS: Benzonatate 100 MG CAP PO SCH ×3 (08:55→20:07)
[2020-09-16] MEDS: Cefepime 1 GM in Sodium Chloride 0.9% 100 ML IVPB SCH ×2 (08:56→20:07)
[2020-09-16] MEDS: Ibuprofen 200 MG TAB PO PRN (09:07)
[2020-09-16] MEDS: Mometasone 200 MCG/Formoterol 5 MCG 120 PUFF INHALER INH SCH ×2 (10:54→18:43)
--- NOTE | 2020-09-16 11:48 | PDOC.HOSPP ---
- Subjective Encounter Date: 09/16/20 Encounter Time: 09:00 Subjective: Patient seen and examined bedside today, patient is on 3 L nasal cannula oxygen, patient is overall doing much better, she does not have any fever or chills, - Objective Vital Signs & Weight: Weight Weight 338 lb 12.8 oz I&O: 09/15/20 09/16/20 09/17/20 06:59 06:59 06:59 Intake Total 2079 960 Balance 2079 960 Result Diagrams: 09/12/20 00:30 09/16/20 07:25 Additional Labs: Accuchecks 09/15/20 18:27 POC Glucose 97 Radiology Reviewed by me: Yes Hospitalist ROS - Review of Systems ENT: denies: ear pain, ear discharge, nose pain, nose discharge, nose congestion, mouth pain, mouth swelling, throat pain, throat swelling, other Respiratory: reports: SOB with excertion. denies: cough, dry, shortness of breath, hemoptysis, pleuritic pain, sputum, wheezing, other Cardiovascular: denies: chest pain, palpitations, orthopnea, paroxysmal noc. dyspnea, edema, light headedness, other Gastrointestinal: denies: nausea, vomiting, abdominal pain, diarrhea, constipation, melena, hematochezia, other Genitourinary: denies: dysuria, frequency, incontinence, hematuria, retention, other Musculoskeletal: denies: neck pain, shoulder pain, arm pain, back pain, hand pain, leg pain, foot pain, other - Medication Medications: Active Medications Generic Name Dose Route Start Last Admin Trade Name Freq PRN Reason Stop Dose Admin Acetaminophen 650 mg 09/12/20 03:18 09/13/20 22:36 Acetaminophen 325 Mg Tab PO 650 mg Q4H PRN Administration Headache/Fever/Mild Pain (1-3) Benzonatate 100 mg 09/12/20 15:00 09/16/20 08:55 Benzonatate 100 Mg Cap PO 100 mg TID SHARYN Administration Dexamethasone 6 mg 09/15/20 21:00 09/16/20 08:55 Dexamethasone 4 Mg/Ml Vial SLOW IVP 6 mg BID SHARYN Administration Dicyclomine HCl 20 mg 09/12/20 13:38 09/15/20 18:25 Dicyclomine 20 Mg Tab PO 20 mg QIDPRN PRN Administration abdominal pain Enoxaparin Sodium 40 mg 09/12/20 09:00 09/16/20 08:55 Enoxaparin Sodium 40 Mg/0.4 Ml Syringe SC 40 mg 0900,2100 SHARYN Administration Famotidine 20 mg 09/13/20 09:00 09/16/20 08:54 Famotidine 20 Mg Tab PO 20 mg BID SHARYN Administration Guaifenesin 600 mg 09/12/20 21:00 09/16/20 08:55 Guaifenesin Er 600 Mg Tab PO 600 mg Q12HR SHARYN Administration Guaifenesin/Dextromethorphan 15 ml 09/12/20 11:01 09/14/20 06:39 Guaifenesin Dm 100-10/5 Ml Udcup PO 15 ml Q4H PRN Administration Cough Remdesivir 100 mg/ Sodium 250 mls @ 250 mls/hr 09/13/20 15:00 09/15/20 14:44 Chloride IV 09/16/20 15:59 250 mls 1500 SHARYN Administration Cefepime HCl 1 gm/ Sodium 100 mls @ 200 mls/hr 09/15/20 21:00 09/16/20 08:56 Chloride IVPB 09/22/20 21:01 100 mls Q12HR SHARYN Administration Ibuprofen 400 mg 09/12/20 23:50 09/16/20 09:07 Ibuprofen 200 Mg Tab PO 400 mg Q6H PRN Administration Fever/Mild Pain 1-3 Insulin Human Lispro 0 units 09/12/20 03:23 09/13/20 06:10 Humalog 300 Units/3 Ml Vial SC 2 units .MILD SLIDING SCALE PRN Administration Mild Correctional Scale Mometasone Furoate/Formoterol Fumar 2 puff 09/15/20 18:30 09/16/20 10:54 Mometasone 200 Mcg/Formoterol 5 Mcg 120 Puff Inhaler INH 2 puff BID-RT SHARYN Administration Ondansetron HCl 4 mg 09/12/20 18:39 09/14/20 20:20 Ondansetron Pf 4 Mg/2 Ml Vial IVP 4 mg Q6H PRN Administration Nausea/Vomiting Throat Lozenges 1 mitchell 09/12/20 11:01 09/15/20 04:44 Cepastat Lozenges 1 Mitchell PO 1 mitchell Q2H PRN Administration Sore Throat - Exam General Appearance: NAD, awake alert Eye: PERRL, anicteric sclera ENT: normocephalic atraumatic, no oropharyngeal lesions Neck: supple, symmetric, no JVD, no thyromegaly Heart: RRR, no murmur, no gallops, no rubs Respiratory: CTAB, no wheezes, no rales, no ronchi Respiratory - other findings: Air entry reduced at base, no rales Gastrointestinal: soft, non-tender, non-distended, normal bowel sounds Gastrointestinal - other findings: Morbid obesity noted Extremities: no cyanosis, no clubbing, no edema Skin: normal turgor, no lesions Neurological: no focal deficits Musculoskeletal: normal tone, normal strength Psychiatric: normal affect, normal behavior, A&O x 3 Hosp A/P (1) Acute respiratory failure with hypoxia Code(s): J96.01 - ACUTE RESPIRATORY FAILURE WITH HYPOXIA Status: Acute (2) Pneumonia due to COVID-19 virus Code(s): U07.1 - COVID-19; J12.89 - OTHER VIRAL PNEUMONIA Status: Acute (3) Morbid obesity with BMI of 50.0-59.9, adult Code(s): E66.01 - MORBID (SEVERE) OBESITY DUE TO EXCESS CALORIES; Z68.43 - BODY MASS INDEX [BMI] 50.0-59.9, ADULT Status: Chronic (4) Hepatic steatosis Code(s): K76.0 - FATTY (CHANGE OF) LIVER, NOT ELSEWHERE CLASSIFIED Status: Chronic - Plan old records reviewed/req, continue antibiotics, respiratory therapy, DVT proph w/lovenox Medications reviewed and continue provide symptomatic and supportive care Continue to wean off oxygen as tolerated Currently patient is on remdesivir dexamethasone and vitamin supplementation Ambulate as tolerated and do oxygen challenge test to decide whether patient needs home oxygen upon discharge or not Cefepime started by pulmonology, patient's dexamethasone dose increased by pulmonology
[2020-09-16] MEDS: Dicyclomine 20 MG TAB PO PRN ×2 (13:13→20:53)
--- NOTE | 2020-09-16 13:14 | PRG ---
DATE OF SERVICE: 09/16/2020 Shannen Quiroz is a 29-year-old female. Temperature 98, pulse 62, respiratory rate 20, sats are 90% on 3 L, blood pressure . She is walking in the room. Apparently, denies any coughing or wheezing. She is on antibiotics, Decadron, remdesivir, and Dulera. Hopefully, once her remdesivir is over, she could probably be discharged home early next week. She remains stable. Job ID: [id number]
[2020-09-16] MEDS: REMDESIVIR (EUA) 100 MG in Sodium Chloride 0.9% 250 ML 230 ML IV SCH (15:46)
[2020-09-16] MEDS: HumaLOG 300 UNITS/3 ML VIAL SC PRN (15:52)
--- NOTE | 2020-09-16 16:17 | EKG ---
Test Reason : Blood Pressure : / mmHG Vent. Rate : 109 BPM Atrial Rate : 109 BPM P-R Int : 150 ms QRS Dur : 080 ms QT Int : 338 ms P-R-T Axes : 037 014 014 degrees QTc Int : 455 ms Sinus tachycardia Otherwise normal ECG Confirmed by ELLIOT BLAKE M.D. ([id number]), technical writer and editor ANAYA LAWLER ([id number]) on 09/16/2020 4:17:03 PM Referred By: Confirmed By:ELLIOT BLAKE M.D.
[2020-09-16] MEDS: Acetaminophen 325 MG TAB PO PRN (17:08)
[2020-09-16] MEDS: Calcium Carbonate 500 MG ChewTAB PO PRN ×2 (18:22→23:58)
[2020-09-17] MEDS: Mometasone 200 MCG/Formoterol 5 MCG 120 PUFF INHALER INH SCH ×2 (06:20→17:54)
[2020-09-17 07:28] LABS: ALT (SGPT) 53 U/L (8-55); AST (SGOT) 22 U/L (5-34); Albumin 3.8 g/dL (3.5-5.0); Alkaline Phosphatase 66 U/L (40-110); Anion Gap 17 mmol/L (10-20); BUN (Urea Nitrogen) 11 mg/dL (7.0-18.7); Bilirubin, Direct 0.2 mg/dL (0.1-0.3); Bilirubin, Total 0.4 mg/dL (0.2-1.2); Calc. Creatinine Clearance 277 mL/min (70-130); Calcium 9.7 mg/dL (7.8-10.44); Carbon Dioxide 27 mmol/L (22-29); Chloride 100 mmol/L (98-107); Estimated GFR-MDRD Greater than 90; Glucose 158 mg/dL (70-105); Potassium 4.5 mmol/L (3.5-5.1); Protein, Total 7.7 g/dL (6.0-8.3); Sodium 139 mmol/L (136-145)
[2020-09-17] MEDS: Cefepime 1 GM in Sodium Chloride 0.9% 100 ML IVPB SCH ×2 (08:27→20:22)
[2020-09-17] MEDS: Enoxaparin Sodium 40 MG/0.4 ML SYRINGE SC SCH ×2 (08:28→20:22)
[2020-09-17] MEDS: Benzonatate 100 MG CAP PO SCH ×3 (08:28→20:22)
[2020-09-17] MEDS: guaiFENesin ER 600 MG TAB PO SCH ×2 (08:28→20:22)
[2020-09-17] MEDS: Famotidine 20 MG TAB PO SCH ×2 (08:28→20:22)
[2020-09-17] MEDS: Dexamethasone 4 mg/ml Vial SLOW IVP SCH ×2 (08:29→20:21)
[2020-09-17] MEDS: Dicyclomine 20 MG TAB PO PRN ×2 (09:56→20:22)
[2020-09-17] MEDS: Calcium Carbonate 500 MG ChewTAB PO PRN ×3 (10:36→20:21)
--- NOTE | 2020-09-17 11:40 | PDOC.HOSPP ---
- Subjective Encounter Date: 09/17/20 Encounter Time: 08:35 Subjective: Patient is clinically doing better, she is on 2 to 3 L nasal cannula oxygen, no fever, no nausea or vomiting. - Objective Vital Signs & Weight: Vital Signs (12 hours) Temp Pulse Resp BP Pulse Ox 09/17/20 08:00 99.1 F 59 L 18 120/78 98 09/17/20 04:46 54 L 18 97 09/16/20 23:42 48 L 18 97 Weight Weight 338 lb 12.8 oz I&O: 09/16/20 09/17/20 09/18/20 06:59 06:59 06:59 Intake Total 960 2019 Balance 960 2019 Result Diagrams: 09/12/20 00:30 09/17/20 06:51 Additional Labs: Accuchecks 09/17/20 09/16/20 09/16/20 05:32 15:28 12:04 POC Glucose 178 H 187 H 108 H Hospitalist ROS - Review of Systems ENT: denies: ear pain, ear discharge, nose pain, nose discharge, nose congestion, mouth pain, mouth swelling, throat pain, throat swelling, other Respiratory: denies: cough, dry, shortness of breath, hemoptysis, SOB with excertion, pleuritic pain, sputum, wheezing, other Cardiovascular: denies: chest pain, palpitations, orthopnea, paroxysmal noc. dyspnea, edema, light headedness, other Gastrointestinal: denies: nausea, vomiting, abdominal pain, diarrhea, constipation, melena, hematochezia, other Genitourinary: denies: dysuria, frequency, incontinence, hematuria, retention, other Musculoskeletal: denies: neck pain, shoulder pain, arm pain, back pain, hand pain, leg pain, foot pain, other - Medication Medications: Active Medications Generic Name Dose Route Start Last Admin Trade Name Freq PRN Reason Stop Dose Admin Acetaminophen 650 mg 09/12/20 03:18 09/16/20 17:08 Acetaminophen 325 Mg Tab PO 650 mg Q4H PRN Administration Headache/Fever/Mild Pain (1-3) Benzonatate 100 mg 09/12/20 15:00 09/17/20 08:28 Benzonatate 100 Mg Cap PO 100 mg TID SHARYN Administration Calcium Carbonate 1,000 mg 09/16/20 08:31 11/22/20 10:36 Calcium Carbonate 500 Mg Chewtab PO 1,000 mg Q4H PRN Administration Heartburn or Indigestion Dexamethasone 6 mg 09/15/20 21:00 09/17/20 08:29 Dexamethasone 4 Mg/Ml Vial SLOW IVP 6 mg BID SHARYN Administration Dicyclomine HCl 20 mg 09/12/20 13:38 09/17/20 09:56 Dicyclomine 20 Mg Tab PO 20 mg QIDPRN PRN Administration abdominal pain Enoxaparin Sodium 40 mg 09/12/20 09:00 09/17/20 08:28 Enoxaparin Sodium 40 Mg/0.4 Ml Syringe SC 40 mg 0900,2100 SHARYN Administration Famotidine 20 mg 09/13/20 09:00 09/17/20 08:28 Famotidine 20 Mg Tab PO 20 mg BID SHARYN Administration Guaifenesin 600 mg 09/12/20 21:00 09/17/20 08:28 Guaifenesin Er 600 Mg Tab PO 600 mg Q12HR SHARYN Administration Guaifenesin/Dextromethorphan 15 ml 09/12/20 11:01 09/14/20 06:39 Guaifenesin Dm 100-10/5 Ml Udcup PO 15 ml Q4H PRN Administration Cough Cefepime HCl 1 gm/ Sodium 100 mls @ 200 mls/hr 09/15/20 21:00 09/17/20 08:27 Chloride IVPB 09/22/20 21:01 100 mls Q12HR SHARYN Administration Ibuprofen 400 mg 09/12/20 23:50 09/16/20 09:07 Ibuprofen 200 Mg Tab PO 400 mg Q6H PRN Administration Fever/Mild Pain 1-3 Insulin Human Lispro 0 units 09/12/20 03:23 09/16/20 15:52 Humalog 300 Units/3 Ml Vial SC 2 units .MILD SLIDING SCALE PRN Administration Mild Correctional Scale Mometasone Furoate/Formoterol Fumar 2 puff 09/15/20 18:30 09/17/20 06:20 Mometasone 200 Mcg/Formoterol 5 Mcg 120 Puff Inhaler INH 2 puff BID-RT SHARYN Administration Ondansetron HCl 4 mg 09/12/20 18:39 09/14/20 20:20 Ondansetron Pf 4 Mg/2 Ml Vial IVP 4 mg Q6H PRN Administration Nausea/Vomiting Throat Lozenges 1 mitchell 09/12/20 11:01 09/15/20 04:44 Cepastat Lozenges 1 Mitchell PO 1 mitchell Q2H PRN Administration Sore Throat - Exam General Appearance: NAD, awake alert Eye: PERRL, anicteric sclera ENT: normocephalic atraumatic, no oropharyngeal lesions Neck: supple, symmetric, no JVD, no thyromegaly Heart: RRR, no murmur, no gallops, no rubs, normal peripheral pulses Respiratory: no wheezes, no rales, no ronchi Gastrointestinal: soft, non-tender, non-distended, normal bowel sounds Extremities: no cyanosis, no clubbing, no edema Skin: normal turgor, no lesions Neurological: no focal deficits Musculoskeletal: normal tone, normal strength, no muscle wasting Psychiatric: normal affect, normal behavior, A&O x 3 Hosp A/P (1) Acute respiratory failure with hypoxia Code(s): J96.01 - ACUTE RESPIRATORY FAILURE WITH HYPOXIA Status: Acute (2) Pneumonia due to COVID-19 virus Code(s): U07.1 - COVID-19; J12.89 - OTHER VIRAL PNEUMONIA Status: Acute (3) Morbid obesity with BMI of 50.0-59.9, adult Code(s): E66.01 - MORBID (SEVERE) OBESITY DUE TO EXCESS CALORIES; Z68.43 - BODY MASS INDEX [BMI] 50.0-59.9, ADULT Status: Chronic (4) Hepatic steatosis Code(s): K76.0 - FATTY (CHANGE OF) LIVER, NOT ELSEWHERE CLASSIFIED Status: Chronic - Plan old records reviewed/req, respiratory therapy Patient has been his remdesivir therapy Continue dexamethasone Continue cefepime as per pulmonology Wean off oxygen as tolerated Once oxygen off then will consider discharging her home in next 24 hours. Ambulate as tolerated
--- NOTE | 2020-09-17 12:59 | PRG ---
DATE OF SERVICE: 09/17/2020 SUBJECTIVE: This morning, she is sitting on the side of the bed, looking good. OBJECTIVE: VITAL SIGNS: Temperature 99, pulse 59, respiratory rate 18, saturations are 90% on 2 L, blood pressure 120/78. CHEST: No wheezing, no crackles. CARDIAC: Normal S1, S2. No gallops. ABDOMEN: No masses. ASSESSMENT: Loja positive pneumonia, respiratory failure, status post remdesivir. The patient looks much improved. Continue Decadron, antibiotics. Get another x-ray. This is improved. We will switch her to oral medication. Maybe she can be discharged home in a day or two. She remains stable. Job ID: [id number]
[2020-09-18 06:47] LABS: ALT (SGPT) 50 U/L (8-55); AST (SGOT) 25 U/L (5-34); Albumin 3.6 g/dL (3.5-5.0); Alkaline Phosphatase 62 U/L (40-110); Anion Gap 16 mmol/L (10-20); BUN (Urea Nitrogen) 14 mg/dL (7.0-18.7); Bilirubin, Direct 0.2 mg/dL (0.1-0.3); Bilirubin, Total 0.4 mg/dL (0.2-1.2); CRP (Inflammatory) 0.68 mg/dL (= or < 0.5); Calc. Creatinine Clearance 289 mL/min (70-130); Calcium 9.2 mg/dL (7.8-10.44); Carbon Dioxide 28 mmol/L (22-29); Chloride 98 mmol/L (98-107); Estimated GFR-MDRD Greater than 90; Glucose 159 mg/dL (70-105); Potassium 4.4 mmol/L (3.5-5.1); Sodium 138 mmol/L (136-145)
--- NOTE | 2020-09-18 08:44 | RAD ---
PORTABLE CHEST: HISTORY: Virus pneumonia. COMPARISON: 09/14/2020. FINDINGS/IMPRESSION: The bilateral infiltrates are less pronounced than on 09/14/2020 suggesting some interval improvement . POS: AGW
--- NOTE | 2020-09-18 08:47 | PQF ---
CLINICAL DOCUMENTATION CLARIFICATION FORM: Dear Dr. Trammell Date: 09/18/2020 Please exercise your independent, professional judgment in responding to the clarification form. Clinical indicators are provided on the bottom of this form for your review. Please check appropriate box(s): [ x ] Sepsis due to COVID-19 virus [ ] COVID-19 virus without Sepsis [ ] Other diagnosis [ ] Unable to determine In addition, please specify: Present on Admission (POA): [ x ] Yes [ ] No [ ] Unable to determine For continuity of documentation, please document condition throughout progress notes and discharge summary. Thank You. CLINICAL INDICATORS - SIGNS / SYMPTOMS / LABS / RESULTS AND LOCATION IN EMR *ED 09/12: * Vital Signs: 90-92% on Room Air, 95-97% on 2L Oxygen RR 20-24 Pulse 97-106 Temp (max) 101.7 (oral) * ... Ambulated without oxygen and desatted down into the mid 80s. *H&P 09/12 (Vicenta): Pneumonia secondary to COVID-19 virus infection. *PN 09/12 (Scotty): Acute respiratory failure with hypoxia *Vital Signs (EMR): Temp Pulse 09/12 at 0820 100.0 107 09/12 at 1500 101.1 107 09/12 at 2005 102.6 98 09/12 at 2234 101.0 09/12 at 2300 101 *LAB (EMR): WBC Neutrophils % Lactic Acid C-Reactive Protein 09/12 7.7 75.0 1.6 11/13 27.99 09/14 18.12 09/15 6.07 09/16- 1.60 - 2.70 09/18 0.68 RISK FACTORS / RESULTS AND LOCATION IN EMR *H&P 09/12 (Vicenta): * Diabetes mellitus, type 2 * Morbid obesity * Pneumonia secondary to COVID-19 virus infection. TREATMENTS / RESULTS AND LOCATION IN EMR *ED 09/12: NS 1L IV *H&P 09/12 (Vicenta): Oxygen IV dexamethasone Empiric IV antibiotics *LAB (EMR): CBC 09/12; CRP Daily 09/14-09/18, Lactic Acid 09/12 *Microbiology 09/12 (EMR): Blood Culture x2 *Infectious Disease Consultation 09/12 (Jessica): Start remdesivir and continue Decadron and Lovenox. Discontinue azithromycin and Rocephin. Monitor markers daily. *Pulmonary Consultation 09/15 (Saleh): Increase Decadron twice a day. Continue Maxipime. 1 bag of plasma. Thank you, Jessica CDS/Ex Chef Signature: Jessica Garcia RN, CDS Phone #: [phone] [email or web address] This is a permanent part of the Medical Record MTDD
[2020-09-18] MEDS: Mometasone 200 MCG/Formoterol 5 MCG 120 PUFF INHALER INH SCH ×2 (09:05→18:55)
[2020-09-18] MEDS: Cefepime 1 GM in Sodium Chloride 0.9% 100 ML IVPB SCH ×2 (09:05→20:12)
[2020-09-18] MEDS: Dexamethasone 4 mg/ml Vial SLOW IVP SCH ×2 (09:06→20:13)
[2020-09-18] MEDS: Benzonatate 100 MG CAP PO SCH ×3 (09:07→20:12)
[2020-09-18] MEDS: Enoxaparin Sodium 40 MG/0.4 ML SYRINGE SC SCH ×2 (09:07→20:13)
[2020-09-18] MEDS: guaiFENesin ER 600 MG TAB PO SCH ×2 (09:07→20:12)
[2020-09-18] MEDS: Famotidine 20 MG TAB PO SCH ×2 (09:09→20:11)
[2020-09-18] MEDS: Calcium Carbonate 500 MG ChewTAB PO PRN ×2 (09:41→17:42)
[2020-09-18] MEDS: Dicyclomine 20 MG TAB PO PRN ×2 (09:41→20:35)
--- NOTE | 2020-09-18 11:20 | PRG ---
DATE OF SERVICE: 09/18/2020 SUBJECTIVE: Shannen Quiroz is a 29-year-old female, remains in the hospital day #6. She is doing well. OBJECTIVE: VITAL SIGNS: Temperature 99, pulse is 58, respiratory rate 18, saturation is 90 on 2 L, and blood pressure 101/64. CHEST: No wheezing, no crackles. CARDIAC: Normal S1, S2. No gallops. ABDOMEN: No masses. LABORATORY DATA: C-reactive protein down to 0.68. IMPRESSION: Coronavirus-positive pneumonia, respiratory failure, on Decadron, plasma, empiric antibiotics. She looks stable enough. She could probably be discharged home in the next 24 to 48 hours. Switch over to oral medication. Job ID: [id number]
--- NOTE | 2020-09-18 11:34 | PDOC.HOSPP ---
- Subjective Encounter Date: 09/18/20 Encounter Time: 08:30 Subjective: Patient seen and examined. No new complaints. No overnight events - Objective Vital Signs & Weight: Weight Weight 338 lb 12.8 oz I&O: 09/17/20 09/18/20 09/19/20 06:59 06:59 06:59 Intake Total 2019 2399 Balance 2019 2399 Result Diagrams: 09/12/20 00:30 09/18/20 05:46 Additional Labs: Accuchecks 09/17/20 09/17/20 09/17/20 20:35 15:35 12:12 POC Glucose 195 H 196 H 171 H 09/16/20 09/15/20 20:18 13:34 POC Glucose 199 H 133 H Radiology Reviewed by me: Yes ([place] x-ray showed improvement in infiltration) Hospitalist ROS - Review of Systems ENT: denies: ear pain, ear discharge, nose pain, nose discharge, nose congestion, mouth pain, mouth swelling, throat pain, throat swelling, other Respiratory: denies: cough, dry, shortness of breath, hemoptysis, SOB with excertion, pleuritic pain, sputum, wheezing, other Cardiovascular: denies: chest pain, palpitations, orthopnea, paroxysmal noc. dyspnea, edema, light headedness, other Gastrointestinal: denies: nausea, vomiting, abdominal pain, diarrhea, constipation, melena, hematochezia, other Genitourinary: denies: dysuria, frequency, incontinence, hematuria, retention, other Musculoskeletal: denies: neck pain, shoulder pain, arm pain, back pain, hand pain, leg pain, foot pain, other - Medication Medications: Active Medications Generic Name Dose Route Start Last Admin Trade Name Freq PRN Reason Stop Dose Admin Acetaminophen 650 mg 09/12/20 03:18 09/16/20 17:08 Acetaminophen 325 Mg Tab PO 650 mg Q4H PRN Administration Headache/Fever/Mild Pain (1-3) Benzonatate 100 mg 09/12/20 15:00 09/18/20 09:07 Benzonatate 100 Mg Cap PO 100 mg TID SHARYN Administration Calcium Carbonate 1,000 mg 09/16/20 08:31 09/18/20 09:41 Calcium Carbonate 500 Mg Chewtab PO 1,000 mg Q4H PRN Administration Heartburn or Indigestion Dexamethasone 6 mg 09/15/20 21:00 09/18/20 09:06 Dexamethasone 4 Mg/Ml Vial SLOW IVP 6 mg BID SHARYN Administration Dicyclomine HCl 20 mg 09/12/20 13:38 09/18/20 09:41 Dicyclomine 20 Mg Tab PO 20 mg QIDPRN PRN Administration abdominal pain Enoxaparin Sodium 40 mg 09/12/20 09:00 09/18/20 09:07 Enoxaparin Sodium 40 Mg/0.4 Ml Syringe SC 40 mg 0900,2100 SHARYN Administration Famotidine 20 mg 09/13/20 09:00 09/18/20 09:09 Famotidine 20 Mg Tab PO 20 mg BID SHARYN Administration Guaifenesin 600 mg 09/12/20 21:00 09/18/20 09:07 Guaifenesin Er 600 Mg Tab PO 600 mg Q12HR SHARYN Administration Guaifenesin/Dextromethorphan 15 ml 09/12/20 11:01 09/14/20 06:39 Guaifenesin Dm 100-10/5 Ml Udcup PO 15 ml Q4H PRN Administration Cough Cefepime HCl 1 gm/ Sodium 100 mls @ 200 mls/hr 09/15/20 21:00 09/18/20 09:05 Chloride IVPB 09/22/20 21:01 100 mls Q12HR SHARYN Administration Ibuprofen 400 mg 09/12/20 23:50 09/16/20 09:07 Ibuprofen 200 Mg Tab PO 400 mg Q6H PRN Administration Fever/Mild Pain 1-3 Insulin Human Lispro 0 units 09/12/20 03:23 09/16/20 15:52 Humalog 300 Units/3 Ml Vial SC 2 units .MILD SLIDING SCALE PRN Administration Mild Correctional Scale Mometasone Furoate/Formoterol Fumar 2 puff 09/15/20 18:30 09/18/20 09:05 Mometasone 200 Mcg/Formoterol 5 Mcg 120 Puff Inhaler INH 2 puff BID-RT SHARYN Administration Ondansetron HCl 4 mg 09/12/20 18:39 09/14/20 20:20 Ondansetron Pf 4 Mg/2 Ml Vial IVP 4 mg Q6H PRN Administration Nausea/Vomiting Throat Lozenges 1 mitchell 09/12/20 11:01 09/15/20 04:44 Cepastat Lozenges 1 Mitchell PO 1 mitchell Q2H PRN Administration Sore Throat - Exam General Appearance: NAD, awake alert Eye: PERRL, anicteric sclera ENT: normocephalic atraumatic, no oropharyngeal lesions Neck: supple, symmetric, no JVD, no thyromegaly Heart: RRR, no murmur, no gallops, no rubs, normal peripheral pulses Respiratory: no wheezes, no rales, no ronchi Gastrointestinal: soft, non-tender, non-distended, normal bowel sounds Extremities: no cyanosis, no clubbing, no edema Skin: normal turgor, no lesions Neurological: no focal deficits Musculoskeletal: normal tone, normal strength Hosp A/P (1) Acute respiratory failure with hypoxia Code(s): J96.01 - ACUTE RESPIRATORY FAILURE WITH HYPOXIA Status: Acute (2) Pneumonia due to COVID-19 virus Code(s): U07.1 - COVID-19; J12.89 - OTHER VIRAL PNEUMONIA Status: Acute (3) Morbid obesity with BMI of 50.0-59.9, adult Code(s): E66.01 - MORBID (SEVERE) OBESITY DUE TO EXCESS CALORIES; Z68.43 - BODY MASS INDEX [BMI] 50.0-59.9, ADULT Status: Chronic (4) Hepatic steatosis Code(s): K76.0 - FATTY (CHANGE OF) LIVER, NOT ELSEWHERE CLASSIFIED Status: Chronic - Plan old records reviewed/req, continue antibiotics, respiratory therapy S/p remdesivir therapy Continue dexamethasone Continue cefepime as per pulmonology Wean off oxygen as tolerated Possible discharge tomorrow if pulmonary clears and able to wean her off oxygen
[2020-09-18] MEDS: HumaLOG 300 UNITS/3 ML VIAL SC PRN ×2 (12:34→17:42)
--- NOTE | 2020-09-18 15:59 | PRG ---
DATE OF SERVICE: 09/18/2020 SUBJECTIVE: Ms. Quiroz is improving. Less shortness of breath. Less cough. No diarrhea. Eating better. OBJECTIVE: VITAL SIGNS: T-max 99.5, saturating 96% to 99% on 2 L nasal cannula, and blood pressure 104/61. GENERAL: Appears in no distress. Alert. LUNGS: With clear breath sounds. HEART: S1 and S2, regular rate. ABDOMEN: Soft, not distended. Moves all extremities equally. LABORATORY DATA: D-dimer is 0.41, ferritin is 241, CRP 0.68, marked improvement. ASSESSMENT AND PLAN: COVID-19, this is the 15th day of illness, on Decadron, remdesivir, has been completed. The patient is doing quite well. Marked improvement in markers and O2 supplementation requirement. She will be able to go home soon. Job ID: [id number]
[2020-09-18] MEDS: Ibuprofen 200 MG TAB PO PRN (17:42)
[2020-09-19] MEDS: HumaLOG 300 UNITS/3 ML VIAL SC PRN (05:54)
[2020-09-19] MEDS: Mometasone 200 MCG/Formoterol 5 MCG 120 PUFF INHALER INH SCH (06:17)
[2020-09-19 07:05] LABS: ALT (SGPT) 49 U/L (8-55); AST (SGOT) 18 U/L (5-34); Albumin 3.5 g/dL (3.5-5.0); Alkaline Phosphatase 77 U/L (40-110); Anion Gap 16 mmol/L (10-20); BUN (Urea Nitrogen) 16 mg/dL (7.0-18.7); Bilirubin, Direct 0.2 mg/dL (0.1-0.3); Bilirubin, Total 0.3 mg/dL (0.2-1.2); CRP (Inflammatory) Less than 0.50 mg/dL (= or < 0.5); Calc. Creatinine Clearance 273 mL/min (70-130); Calcium 8.7 mg/dL (7.8-10.44); Carbon Dioxide 26 mmol/L (22-29); Chloride 99 mmol/L (98-107); Estimated GFR-MDRD Greater than 90; Glucose 186 mg/dL (70-105); Potassium 4.2 mmol/L (3.5-5.1); Protein, Total 6.6 g/dL (6.0-8.3); Sodium 137 mmol/L (136-145)
[2020-09-19] MEDS: Enoxaparin Sodium 40 MG/0.4 ML SYRINGE SC SCH (09:21)
[2020-09-19] MEDS: Famotidine 20 MG TAB PO SCH (09:22)
[2020-09-19] MEDS: Dexamethasone 4 mg/ml Vial SLOW IVP SCH (09:22)
[2020-09-19] MEDS: guaiFENesin ER 600 MG TAB PO SCH (09:22)
[2020-09-19] MEDS: Benzonatate 100 MG CAP PO SCH ×2 (09:22→15:17)
[2020-09-19] MEDS: Cefepime 1 GM in Sodium Chloride 0.9% 100 ML IVPB SCH (09:22)
--- NOTE | 2020-09-19 10:11 | PRG ---
DATE OF SERVICE: 09/19/2020 OBJECTIVE: VITAL SIGNS: This morning, temperature 99, pulse 80, respirations 18, sats 97% on 1 L, blood pressure 109/66. CHEST: No wheezing. No crackles. CARDIAC: Normal S1, S2. No gallops. ABDOMEN: No masses. LABORATORY DATA: X-ray still shows bilateral infiltrates better. ASSESSMENT: Coronavirus positive pneumonia with respiratory failure. PLAN: I am going to switch her to oral antibiotic steroids tomorrow. Hopefully, if she remains stable in the next day or 2, she could be discharged home. Job ID: [id number]
--- NOTE | 2020-09-19 11:44 | PDOC.DS.DS ---
Provider - Provider Date of Admission: 09/12/20 06:08 Date of Discharge: 09/19/20 Admitting Provider: Ana Yadav MD Consultations: Infectious Disease, Pulmonary Primary Care Physician: NO PCP PROVIDER Course - Hospital Course Hospital Course: Resuscitation Status: 09/12/20 03:18 Resuscitation Status Routine Resuscitation Status: FULL: Full Resuscitation - Labs Lab Results: 09/12/20 00:30 09/19/20 06:22 Abnormal Lab Results - Last 48 hrs 09/18/20 05:46: C-Reactive Protein 0.68 H 09/19/20 06:22: D-Dimer 0.45 H Microbiology - Entire Visit 09/12/20 00:30 Venous blood - Right Arm Blood Culture - Final NO GROWTH IN 5 DAYS 09/12/20 00:20 Venous blood - Left Arm Blood Culture - Final NO GROWTH IN 5 DAYS - Physical Exam Vitals: Vital Signs (12 hours) Pulse Ox 09/19/20 09:15 95 Weight Weight 338 lb 12.8 oz Physical Exam: The patient was seen and examined on the day of discharge. General patient is currently alert and awake no acute distress Head normocephalic atraumatic Neck supple no JVD no meningeal signs of irritation Lungs clear to auscultation without any rhonchi or rales Cardiac S1-S2 regular, no murmur no gallop no rub Abdomen soft, bowel sounds present, nontender nondistended no organomegaly no mass Extremity no edema Neurologic nonfocal examination Problem - Problem (1) Acute respiratory failure with hypoxia Code(s): J96.01 - ACUTE RESPIRATORY FAILURE WITH HYPOXIA Status: Acute (2) Pneumonia due to COVID-19 virus Code(s): U07.1 - COVID-19; J12.89 - OTHER VIRAL PNEUMONIA Status: Acute (3) Morbid obesity with BMI of 50.0-59.9, adult Code(s): E66.01 - MORBID (SEVERE) OBESITY DUE TO EXCESS CALORIES; Z68.43 - BODY MASS INDEX [BMI] 50.0-59.9, ADULT Status: Chronic (4) Hepatic steatosis Code(s): K76.0 - FATTY (CHANGE OF) LIVER, NOT ELSEWHERE CLASSIFIED Status: Chronic Plan - Discharge Medications Prescriptions: Albuterol Sulfate [Ventolin HFA] 1 puff INH Q4HR PRN #1 inh PRN Reason: Sob &/Or Wheezing Cefdinir 300 mg PO Q12HR #14 capsule Dexamethasone 2 mg PO ASDIR #12 tablet Dexamethasone 6 mg PO DAILY #4 tablet Benzonatate [Tessalon] 100 mg PO TID PRN #30 cap PRN Reason: Cough Ascorbic Acid [Vitamin C] 1,000 mg PO DAILY #7 tablet Zinc Sulfate 220 mg PO DAILY #7 tablet Home Medications: Medication Instructions Recorded Confirmed Type Allopurinol 100 mg PO HS 09/12/20 09/12/20 History Amitriptyline HCl [Elavil] 10 mg PO HS 09/12/20 09/12/20 History Cetirizine HCl [Zyrtec] 10 mg PO HS 09/12/20 09/12/20 History Cholecalciferol (Vitamin D3) 1,000 unit PO HS 09/12/20 09/12/20 History [Vitamin D] Citalopram [CeleXA] 20 mg PO HS 09/12/20 09/12/20 History Magnesium Oxide [Mag-Oxide] 200 mg PO HS 09/12/20 09/12/20 History Norethindrone [Armida] 1 tablet PO HS 09/12/20 09/12/20 History Omeprazole 40 mg PO DAILY 09/12/20 09/12/20 History Spironolactone [Aldactone] 1 tab PO HS 09/12/20 09/12/20 History metFORMIN [Glucophage] 500 mg PO QPM-WM 09/12/20 09/12/20 History Albuterol Sulfate [Ventolin HFA] 1 puff INH Q4HR PRN #1 inh 09/19/20 Rx Ascorbic Acid [Vitamin C] 1,000 mg PO DAILY #7 tablet 09/19/20 Rx Benzonatate [Tessalon] 100 mg PO TID PRN #30 cap 09/19/20 Rx Cefdinir 300 mg PO Q12HR #14 capsule 09/19/20 Rx Dexamethasone 2 mg PO ASDIR #12 tablet 09/19/20 Rx Dexamethasone 6 mg PO DAILY #4 tablet 09/19/20 Rx Zinc Sulfate 220 mg PO DAILY #7 tablet 09/19/20 Rx Allergies: Penicillins Allergy (Verified 09/12/20 11:26) PER ER NOTES Sulfa (Sulfonamide Antibiotics) Allergy (Verified 09/12/20 11:26) PER ER NOTES - Discharge Instructions Activity:: Activity as Tolerated Nourishment:: Heart Healthy Diet Therapies:: Not Applicable Equipment/Supplies:: Not Applicable IV Therapy:: Not Applicable - Follow up Plan Referrals: Dario Saleh MD [Active] - PROVIDER,NO PCP [Primary Care Provider] - Disposition: HOME Quality - Care Measures CORE MEASURES:: N/A
[2020-09-19 16:58] VITALS: BP 142/80; TEMP 99.2
== END 2020-09-19 18:00 | disposition home or self-care (01) | DRG 871 ==
LOC: ERS 23:58 → 2SW 09-12 06:08 → T4-A 09-12 22:53
PROVIDERS: ADMIT Internal Medicine; ATTEND Internal Medicine
PROC: 8E0ZXY6 Isolation (ICD-10-PCS; principal; 2020-09-12)
PROC: XW033E5 Introduction of Remdesivir Anti-infective into Peripheral Vein, Percutaneous Approach, New Technology Group 5 (ICD-10-PCS; 2020-09-12)
DX: A41.89 Other specified sepsis (principal); U07.1 COVID-19; J12.89 Other viral pneumonia; J96.01 Acute respiratory failure with hypoxia; Z68.43 Body mass index [BMI] 50.0-59.9, adult; E66.01 Morbid (severe) obesity due to excess calories; E11.9 Type 2 diabetes mellitus without complications; J45.909 Unspecified asthma, uncomplicated; M10.9 Gout, unspecified; K58.9 Irritable bowel syndrome, unspecified; F41.9 Anxiety disorder, unspecified; E28.2 Polycystic ovarian syndrome; K76.0 Fatty (change of) liver, not elsewhere classified; K80.20 Calculus of gallbladder without cholecystitis without obstruction; Z88.0 Allergy status to penicillin; Z88.1 Allergy status to other antibiotic agents; Z79.899 Other long term (current) drug therapy; Z79.84 Long term (current) use of oral hypoglycemic drugs
CPT/HCPCS: 36415; 36416; 71045; 71250; 74177; 80048; 80053; 80076; 82728; 83605; 84703; 85025; 85379; 86140; 87040; 93005; 96372; J0456; J0500; J0692; J0696; J1100; J1650; J2405; J2550; J3490; J7050; S0028